=== PATIENT | female | born 2000 | race African-American/Black ===

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

== ENCOUNTER 2019-10-27 08:49 | Emergency (ER) | payer BC ==
[2019-10-27 08:59] VITALS: BP 106/61; PULSE 65; TEMP 97.9; BMI 16.1
--- NOTE | 2019-10-27 09:35 | PDOC ---
History of Present Illness - General Chief Complaint: Ear Problem Stated Complaint: EAR PROBLEM/LEG PAIN Time Seen by Provider: 10/27/19 09:15 History Source: Patient Exam Limitations: No Limitations - History of Present Illness Initial Comments: 10/27/19 09:30 18 year old female with no significant medical or surgical history presents with chronic upper back pain, left knee pain and clogged left ear. Patient reports treated 2 weeks ago for upper back and shoulder pain, states still has patches , has not yet followed up and has no new symptoms. Also reports left ear feeling clogged and having a lot of wax when she cleans the ear. Denies decrease hearing. States pain in left knee when she extends her left leg and tries to flex it. Denies injuries, fall, numbness or tingling. Is this a multiple visit Asthma Patient?: No Timing/Duration: unsure Severity: moderate Modifying Factors: improves with: immobilization Associated Symptoms: reports: denies symptoms Aspirin Received prior to arrival: Yes: no aspirin today Asa Contraindications(Core Measure): Yes: Allergy Beta Alfonso Contraindications(Core Measure): Yes: Not Prescribed Beta Alfonso Given by EMS(Core Measure): No Beta Alfonso Taken at Home(Core Measure): No Beta Alfonso Not Indicated at this Time(Core Measure): No Past History - Travel Traveled outside of the country in the last 30 days: No Close contact w/someone who was outside of country & ill: No - Past Medical History Allergies/Adverse Reactions: Allergies Allergy/AdvReac Type Severity Reaction Status Date / Time No Known Allergies Allergy Verified 10/27/19 08:59 COPD: No Liver Disease: No - Surgical History Gastric Stapling: No - Immunization History Immunization Up to Date: Yes - Psycho Social/Smoking Cessation Hx Smoking History: Current every day smoker Have you smoked in the past 12 months: No Number of Cigarettes Smoked Daily: 0 Information on smoking cessation initiated: No Hx Alcohol Use: No Drug/Substance Use Hx: Yes (Marijuana daily) Substance Use Type: Marijuana Review of Systems - Review of Systems Able to Perform ROS?: Yes Is the patient limited Hungarian proficient: No Constitutional: No: Chills, Fever HEENTM: Yes: Ear Pain Respiratory: No: Cough, Orthopnea, Wheezing Cardiac (ROS): No: Chest Pain, Edema, Chest Tightness ABD/GI: No: Nausea, Poor Appetite, Poor Fluid Intake Musculoskeletal: Yes: Back Pain, Joint Pain. No: Joint Swelling, Muscle Pain, Muscle Weakness, Neck Pain Integumentary: No: Bruising, Erythema, Flushing, Lesions, Lumps, Pruritus, Rash , Sweating Neurological: No: Headache, Numbness, Paresthesia, Seizure, Tingling, Tremors, Weakness Psychiatric: No: Stressors, Sleep Pattern Change Endocrine: No: Increased Hunger, Increased Urine, Unexplained Weight Gain *Physical Exam - Vital Signs Last Vital Signs Temp Pulse Resp BP Pulse Ox 97.9 F 65 16 106/61 99 10/27/19 08:56 10/27/19 08:56 10/27/19 08:56 10/27/19 08:56 10/27/19 08:56 - Physical Exam General Appearance: Yes: Nourished, Appropriately Dressed HEENT: positive: TMs Normal, Pharynx Normal Neck: positive: Supple. negative: Lymphadenopathy (R), Lymphadenopathy (L) Respiratory/Chest: positive: Lungs Clear, Normal Breath Sounds Cardiovascular: positive: Regular Rhythm, Regular Rate Musculoskeletal: negative: CVA Tenderness, CVA Tenderness (R), Vertebral Tenderness Extremity: positive: Normal Capillary Refill, Other (no redness, swelling of left knee, FROM ) Neurologic: positive: Fully Oriented, Alert, Normal Response ED Treatment Course - RADIOLOGY Radiology Studies Ordered: Category Date Time Status KNEE 3 POS-LEFT [RAD] Stat Radiology 10/27/19 09:24 Ordered Medical Decision Making - Medical Decision Making 10/27/19 09:37 8 year old female with no significant medical or surgical history presents with chronic upper back pain, left knee pain and clogged left ear. Patient reports treated 2 weeks ago for upper back and shoulder pain, states still has patches , has not yet followed up and has no new symptoms. Also reports left ear feeling clogged and having a lot of wax when she cleans the ear. Denies decrease hearing. States pain in left knee when she extends her left leg and tries to flex it. Denies injuries, fall, numbness or tingling. ImP: left knee pain cerumen impaction Plan: Left knee xray rx: debrox 10/27/19 10:31 left knee: wet read negative film; negative knee film d/c home f/u with ortho 10/27/19 19:46 Discharge - Discharge Information Problems reviewed: Yes Clinical Impression/Diagnosis: Impacted cerumen Qualifiers: Laterality: left Qualified Code(s): H61.22 - Impacted cerumen, left ear Knee pain, left Qualifiers: Chronicity: unspecified Qualified Code(s): M25.562 - Pain in left knee Condition: Good Disposition: HOME - Admission No - Follow up/Referral - Patient Discharge Instructions Patient Printed Discharge Instructions: Cerumen Impaction, DI for Knee Pain Additional Instructions: Activity as tolerated Call orthopedic for follow up appointment Use ear drops as directed Return to emergency room for decrease hearing - Post Discharge Activity Work/Back to School Note: Back to Work
== END 2019-10-27 10:48 | disposition home or self-care (01) ==
LOC: JERFT 08:49
DX: H61.22 Impacted cerumen, left ear (principal); M25.562 Pain in left knee
CPT/HCPCS: 73562-TC-LT-FY; 99282-25

== ENCOUNTER 2020-06-06 10:00 | Emergency (ER) | payer BC ==
[2020-06-06 10:10] VITALS: BP 119/72; PULSE 98; TEMP 98; BMI 19.3
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
== END 2020-06-06 11:03 | disposition home or self-care (01) ==
LOC: JERFT 10:00
DX: S62.201A Unspecified fracture of first metacarpal bone, right hand, initial encounter for closed fracture (principal)
CPT/HCPCS: 73110-TC-RT-FY; 73130-TC-RT-FY; 99283-25

== ENCOUNTER 2020-06-10 13:09 | Day surgery (SDC) | payer BC ==
[2020-06-10] MEDS ORDERED: LIDOCAINE HCL 2% (20ML MULTI-DOSE VIAL) ONE (14:35)
[2020-06-10] MEDS ORDERED: BUPIVACAINE HCL/PF 0.5% (5MG/ML) 10 ML VIAL ONE (14:35)
[2020-06-10] MEDS ORDERED: GUM MASTIC/STORAX/MSAL/ALCOHOL 1 DRP DROPSBTL MC ONE (14:35)
[2020-06-10] MEDS ORDERED: MIDAZOLAM HCL 2 MG/2 ML SINGLE DOSE VIAL ONE (14:45)
[2020-06-10] MEDS ORDERED: PROPOFOL 20 ML ONE (14:48)
[2020-06-10] MEDS ORDERED: SUCCINYLCHOLINE CHLORIDE 200 MG/10 ML SYRINGE ONE (14:48)
[2020-06-10] MEDS ORDERED: BUPIVACAINE HCL/PF 0.5% (5 MG/ML) 30 ML VIAL IJ ONE (15:44)
[2020-06-10] MEDS ORDERED: ONDANSETRON 4 MG/2 ML VIAL IVPUSH PRN (15:58)
[2020-06-10] MEDS ORDERED: oxyCODONE HCL 5 MG TABLET PO PRN (15:58)
[2020-06-10] MEDS ORDERED: LACTATED RINGERS SOLUTION 1,000 ML IV SCH (16:00)
--- NOTE | 2020-06-10 16:15 | OP ---
DATE OF OPERATION: 06/10/2020 PREOPERATIVE DIAGNOSIS: Right thumb metacarpal fracture. POSTOPERATIVE DIAGNOSIS: Right thumb metacarpal fracture. PROCEDURE: Closed reduction and percutaneous pinning, right thumb metacarpal fracture. SURGEON: Geremias Lundberg MD. ADOBE BALL MIXER: CAITLYN Macdonald. ANESTHESIA: General. COMPLICATIONS: None. ESTIMATED BLOOD LOSS: Minimal. INDICATION FOR PROCEDURE: The patient is a 19-year-old female with the above findings, indicated for operative treatment. Risks, benefits, and alternatives were discussed with the patient at length. Proper informed consent was obtained. DESCRIPTION OF PROCEDURE: After proper identification of the patient and correct operative site, patient was brought to the operating room and placed supine on the operating room table, all bony prominences well padded. General anesthesia was given. Intravenous antibiotics were given. Timeout procedure was performed. Right upper extremity was prepped and draped in the usual sterile fashion. Well padded tourniquet was placed with a sterile prep. No tourniquet was inflated. Closed reduction was performed under live fluoroscopy. Once satisfactory reduction was achieved, crossing K-wires were placed percutaneously. These were both 0.045 K-wires. These were both bent and cut short outside of the skin. Final x-rays were taken to confirm the proper reduction and placement and sizing of hardware. Pins were sterilely dressed. A splint was placed, and the patient was reversed from anesthesia, brought to recovery in stable condition. She tolerated procedure well. GEREMIAS LUNDBERG M.D. [id number]
[2020-06-10] MEDS ORDERED: oxyCODONE HCL 5 MG TABLET ONE (16:53)
[2020-06-10] MEDS ORDERED: oxyCODONE HCL 5 MG TABLET PO ONE (16:56)
[2020-06-10 18:04] VITALS: BP 120/80; PULSE 80; TEMP 97.6
== END 2020-06-10 17:50 | disposition home or self-care (01) ==
LOC: FASU 13:09
PROVIDERS: ATTEND Orthopaedic Surgery Hand Surgery
PROC: 0PSP34Z Reposition Right Metacarpal with Internal Fixation Device, Percutaneous Approach (ICD-10-PCS; principal; 2020-06-10 15:30)
DX: S62.231A Other displaced fracture of base of first metacarpal bone, right hand, initial encounter for closed fracture (principal); X58.XXXA Exposure to other specified factors, initial encounter; Y93.9 Activity, unspecified; Y92.9 Unspecified place or not applicable
CPT/HCPCS: 73130-TC-RT-FY; 84703; 94760

== ENCOUNTER 2020-09-16 21:18 | Emergency (ER) | payer BC, OTHER ==
[2020-09-16 21:46] VITALS: BP 121/70; PULSE 110; TEMP 98.5
[2020-09-16] MEDS ORDERED: ACETAMINOPHEN 500 MG TABLET (FP) PO ONE (22:33)
[2020-09-16] MEDS ORDERED: ACETAMINOPHEN 500 MG TABLET (FP) ONE (22:40)
== END 2020-09-17 01:14 | disposition home or self-care (01) ==
LOC: JER 21:18
DX: G44.309 Post-traumatic headache, unspecified, not intractable (principal)
CPT/HCPCS: 70450-TC; 99284-25

== ENCOUNTER 2021-01-06 12:26 | Emergency (ER) | payer SELFPAY ==
[2021-01-06 12:41] VITALS: BP 121/64; PULSE 73; TEMP 98.6
[2021-01-06] MEDS ORDERED: AMOX TR/POT CLAV 875MG/125MG TABLETS (FP) PO ONE (13:09)
[2021-01-06] MEDS ORDERED: DIPHTH,PERTUSS(ACELL),TET 0.5 ML DISP.SYRIN IM ONE ×2 (13:09→13:11)
[2021-01-06] MEDS ORDERED: AMOX TR/POT CLAV 875MG/125MG TABLETS (FP) ONE (13:11)
== END 2021-01-06 13:38 | disposition home or self-care (01) ==
LOC: JERFT 12:26
PROC: 3E0234Z Introduction of Serum, Toxoid and Vaccine into Muscle, Percutaneous Approach (ICD-10-PCS; principal; 2021-01-06)
DX: S71.152A Open bite, left thigh, initial encounter (principal); W54.0XXA Bitten by dog, initial encounter
CPT/HCPCS: 90715; 99283-25

== ENCOUNTER 2021-08-26 08:33 | Emergency (ER) | payer OTHER ==
[2021-08-26 08:52] VITALS: BP 99/68; PULSE 80; TEMP 98; BMI 19.3
[2021-08-26] MEDS ORDERED: IBUPROFEN 600 MG TABLET (FP) PO ONE ×2 (10:14→10:24)
[2021-08-26 12:21] LABS: THROAT:GRP A STREP NOT DETECTED (NOTDETECTED)
[2021-08-26 13:10] LABS: SARS COV-2 MOLECULAR NEGATIVE (Negative)
== END 2021-08-26 10:31 | disposition home or self-care (01) ==
LOC: JER 08:33
DX: R07.0 Pain in throat (principal)
CPT/HCPCS: 87651; 99283-25; C9803; U0003; U0005

== ENCOUNTER 2022-04-02 09:59 | Emergency (ER) | payer OTHER ==
[2022-04-02 10:12] VITALS: BP 102/66; PULSE 72; TEMP 98; BMI 19.3
[2022-04-02] MEDS ORDERED: KETOROLAC TROMETHAMINE 30 MG/1 ML VIAL IM ONE (11:00)
[2022-04-02] MEDS ORDERED: KETOROLAC TROMETHAMINE 30 MG/1 ML VIAL ONE (11:21)
== END 2022-04-02 11:25 | disposition home or self-care (01) ==
LOC: JER 09:59 → JERFT 09:59
PROC: 3E0233Z Introduction of Anti-inflammatory into Muscle, Percutaneous Approach (ICD-10-PCS; principal; 2022-04-02)
DX: S46.912A Strain of unspecified muscle, fascia and tendon at shoulder and upper arm level, left arm, initial encounter (principal)
CPT/HCPCS: 73030-TC-LT-FY; 99284-25

== ENCOUNTER 2022-06-15 08:45 | Emergency (ER) | payer OTHER ==
[2022-06-15 08:50] VITALS: BP 104/66; PULSE 72; RESP 20; TEMP 98.4; BMI 19.3
[2022-06-15] MEDS ORDERED: DEXAMETHASONE LIQUID 0.5 MG/5 ML PO ONE (10:02)
[2022-06-15] MEDS ORDERED: ACETAMINOPHEN 325 MG TABLET (FP) PO ONE (10:03)
[2022-06-15] MEDS ORDERED: ACETAMINOPHEN 325 MG TABLET (FP) ONE (10:11)
[2022-06-15] MEDS ORDERED: DEXAMETHASONE SOD PHOSPHATE 10 MG/1 ML VIAL ONE (10:11)
== END 2022-06-15 10:55 | disposition home or self-care (01) ==
LOC: JERFT 08:45
DX: J02.9 Acute pharyngitis, unspecified (principal)
CPT/HCPCS: 87651; 99283-25

== ENCOUNTER 2022-07-04 10:47 | Emergency (ER) | payer OTHER ==
[2022-07-04 11:02] VITALS: BP 114/70; PULSE 85; RESP 18; TEMP 98.8; BMI 19.3
[2022-07-04] MEDS ORDERED: ACETAMINOPHEN 500 MG TABLET (FP) PO ONE (11:32)
[2022-07-04] MEDS ORDERED: ACETAMINOPHEN 500 MG TABLET (FP) ONE (11:33)
== END 2022-07-04 11:57 | disposition home or self-care (01) ==
LOC: JER 10:47
DX: J02.9 Acute pharyngitis, unspecified (principal)
CPT/HCPCS: 0241U-QW; 87651; 99283-25

== ENCOUNTER 2022-07-05 08:42 | Emergency (ER) | payer OTHER ==
[2022-07-05 08:52] VITALS: RESP 18; BMI 19.3
[2022-07-05] MEDS ORDERED: CLINDAMYCIN 600MG PREMIX IVPB 600 MG/50 ML BAG IVPB ONE ×2 (09:28→10:17)
[2022-07-05] MEDS ORDERED: ACETAMINOPHEN 1000 MG/100 ML BAG IVPB ONE (09:28)
[2022-07-05] MEDS ORDERED: SODIUM CHLORIDE 1,000 ML IV STA ×2 (09:28→16:42)
[2022-07-05] MEDS ORDERED: ONDANSETRON 4 MG/2 ML VIAL IVPUSH ONE (09:28)
[2022-07-05] MEDS ORDERED: ACETAMINOPHEN INJECTION 100 ML IVPB ONE (10:16)
[2022-07-05] MEDS ORDERED: ONDANSETRON 4 MG/2 ML VIAL ONE (10:17)
[2022-07-05 10:19] LABS: BASO % 0.1 % (0-2.0); EOS % 0.1 % (0-4.5); HEMATOCRIT 38.6 % (32.4-45.2); HEMOGLOBIN 12.9 GM/dL (10.7-15.3); MCH 32.4 pg (25.7-33.7); MCHC 33.4 g/dl (32.0-36.0); MEAN PLT VOLUME 9.1 fl (7.5-11.1); MONO % 14.2 % (3.8-10.2); NEUT % 74.6 % (42.8-82.8); PLATELET COUNT 240 10^3/uL (134-434); RBC 3.98 M/mm3 (3.60-5.2); RDW 16.1 % (11.6-15.6); WHITE BLOOD COUNT 12.6 K/mm3 (4.0-10.0)
[2022-07-05 10:22] LABS: EPI CELLS 36 /uL (0-25.1); HYALINE CASTS 5 /uL (0-3.1); URINE APPEARANCE CLEAR; URINE BACTERIA 86 /uL (0-1359); URINE BILIRUBIN 1+ (NEGATIVE); URINE COLOR DK YELLOW; URINE GLUCOSE (UA) NEGATIVE (NEGATIVE); URINE KETONE 1+ (NEGATIVE); URINE LEUK ESTERASE TRACE (NEGATIVE); URINE NITRITE NEGATIVE (NEGATIVE); URINE PROTEIN 1+ (NEGATIVE); URINE RBC 209 /uL (0-23.9); URINE WBC 28 /uL (0-25.8)
[2022-07-05 10:40] LABS: CALCIUM 9.4 mg/dL (8.5-10.1)
[2022-07-05 10:41] LABS: ALBUMIN 3.8 g/dl (3.4-5.0); BLOOD UREA NITROGEN 11.2 mg/dL (7-18)
[2022-07-05 10:44] LABS: CREATININE 0.8 mg/dL (0.55-1.3)
[2022-07-05 10:46] LABS: TOT PROT 7.8 g/dl (6.4-8.2)
[2022-07-05] MEDS ORDERED: DEXAMETHASONE SOD PHOSPHATE 4 MG/1 ML VIAL IVPUSH ONE (15:14)
[2022-07-05] MEDS ORDERED: DEXAMETHASONE SOD PHOSPHATE 10 MG/1 ML VIAL ONE (15:15)
[2022-07-05] MEDS ORDERED: KETOROLAC TROMETHAMINE 60 MG/2 ML VIAL IVPUSH ONE (15:17)
[2022-07-05] MEDS ORDERED: AMPICILLIN NA/SULBACTAM NA 3 GM in SODIUM CHLORIDE 100 ML IVPB ONE (15:23)
[2022-07-05] MEDS ORDERED: KETOROLAC TROMETHAMINE 30 MG/1 ML VIAL ONE (15:32)
[2022-07-05 17:33] VITALS: BP 109/70; PULSE 77; TEMP 98.7
== END 2022-07-05 17:33 | disposition short-term general hospital (02) ==
LOC: JER 08:42
PROC: 3E033GC Introduction of Other Therapeutic Substance into Peripheral Vein, Percutaneous Approach (ICD-10-PCS; principal; 2022-07-05)
DX: R11.2 Nausea with vomiting, unspecified (principal)
CPT/HCPCS: 0241U-QW; 36415; 70491-TC; 80053; 81003; 85025; 87086; 99285-25; Q9967

== ENCOUNTER 2022-09-02 12:18 | Emergency (ER) | payer OTHER ==
[2022-09-02 12:31] VITALS: BP 122/89; RESP 18; TEMP 99.9; BMI 19.3
[2022-09-02] MEDS ORDERED: KETOROLAC TROMETHAMINE 30 MG/1 ML VIAL IM ONE (12:52)
[2022-09-02] MEDS ORDERED: ONDANSETRON *ODT* 4 MG TABLET SL ONE (12:52)
[2022-09-02] MEDS ORDERED: KETOROLAC TROMETHAMINE 30 MG/1 ML VIAL ONE (13:17)
[2022-09-02] MEDS ORDERED: ONDANSETRON *ODT* 4 MG TABLET ONE (13:17)
[2022-09-02 16:14] VITALS: PULSE 88
== END 2022-09-02 16:14 | disposition home or self-care (01) ==
LOC: JER 12:18
PROC: 3E0233Z Introduction of Anti-inflammatory into Muscle, Percutaneous Approach (ICD-10-PCS; principal; 2022-09-02)
DX: U07.1 COVID-19 (principal)
CPT/HCPCS: 0241U-QW; 99284-25; Q0162

== ENCOUNTER 2022-10-11 07:51 | Observation (INO) | payer OTHER ==
[2022-10-11] MEDS ORDERED: SODIUM CHLORIDE 1,000 ML IV STA (08:22)
[2022-10-11] MEDS ORDERED: ONDANSETRON 4 MG/2 ML VIAL IVPUSH ONE (08:22)
[2022-10-11] MEDS ORDERED: ONDANSETRON 4 MG/2 ML VIAL ONE ×2 (08:38→17:28)
[2022-10-11] MEDS ORDERED: ACETAMINOPHEN INJECTION 100 ML IVPB ONE (08:51)
[2022-10-11] MEDS ORDERED: ACETAMINOPHEN 1000 MG/100 ML BAG IVPB ONE (09:01)
[2022-10-11 09:07] LABS: BASO % 0.3 % (0-2.0); EOS % 0.1 % (0-4.5); HEMATOCRIT 40.2 % (32.4-45.2); LYMPH % 7.7 % (8-40); MCH 32.2 pg (25.7-33.7); MCHC 32.4 g/dl (32.0-36.0); MEAN CELL VOLUME 99.3 fl (80-96); MEAN PLT VOLUME 8.9 fl (7.5-11.1); MONO % 13.4 % (3.8-10.2); NEUT % 78.5 % (42.8-82.8); PLATELET COUNT 236 10^3/uL (134-434); RBC 4.05 M/mm3 (3.60-5.2); RDW 14.1 % (11.6-15.6); WHITE BLOOD COUNT 13.3 K/mm3 (4.0-10.0)
[2022-10-11 09:11] LABS: HCG,QUALITATIVE URINE Negative
[2022-10-11 09:38] LABS: URINE APPEARANCE CLEAR; URINE BILIRUBIN NEGATIVE (NEGATIVE); URINE COLOR YELLOW; URINE GLUCOSE (UA) NEGATIVE (NEGATIVE); URINE KETONE 80 (NEGATIVE); URINE PROTEIN 100 (NEGATIVE)
[2022-10-11 09:39] LABS: URINE LEUK ESTERASE NEGATIVE (NEGATIVE); URINE NITRITE NEGATIVE (NEGATIVE)
[2022-10-11 10:06] LABS: EPI CELLS 55.5 /uL (0-25.1); HYALINE CASTS 5.52 /uL (0-3.1); URINE BACTERIA 164.2 /uL (0-1359); URINE RBC 157.2 /uL (0-23.9)
[2022-10-11 10:13] LABS: ALBUMIN 3.6 g/dl (3.4-5.0); BLOOD UREA NITROGEN 9.1 mg/dL (7-18); CALCIUM 8.1 mg/dL (8.5-10.1)
[2022-10-11 10:14] LABS: CREATININE 0.7 mg/dL (0.55-1.3)
[2022-10-11 10:17] LABS: BILIRUBIN,TOTAL 0.7 mg/dL (0.2-1)
[2022-10-11] MEDS ORDERED: POTASSIUM CHLORIDE TABS 10 MEQ TABLET.ER (FP) PO ONE (12:12)
[2022-10-11] MEDS ORDERED: POTASSIUM CHLORIDE TABS 10 MEQ TABLET.ER (FP) ONE (12:27)
[2022-10-11] MEDS ORDERED: AMOX TR/POT CLAV 875MG/125MG TABLETS (FP) PO ONE (12:33)
[2022-10-11] MEDS ORDERED: KETOROLAC TROMETHAMINE 30 MG/1 ML VIAL IVPUSH ONE (12:33)
[2022-10-11] MEDS ORDERED: AMOX TR/POT CLAV 875MG/125MG TABLETS (FP) ONE (12:34)
[2022-10-11] MEDS ORDERED: KETOROLAC TROMETHAMINE 30 MG/1 ML VIAL ONE (12:34)
[2022-10-11 14:04] LABS: INR 1.33 (0.83-1.09); PROTHROMBIN TIME (PATIENT) 15.3 SEC (9.7-13.0)
[2022-10-11 14:07] LABS: ACTIVATED PTT 30.6 SECONDS (25.2-36.5)
[2022-10-11] MEDS ORDERED: ACETAMINOPHEN 1000 MG/100 ML BAG IVPB PRN (17:17)
[2022-10-11] MEDS: SODIUM CHLORIDE 1,000 ML IV SCH (17:27)
[2022-10-11] MEDS ORDERED: PIPERACILLIN/TAZOB 3.375 GM 3.375 GM/50 ML BAG IVPB ONE ×2 (17:29→17:45)
[2022-10-11] MEDS: ONDANSETRON 4 MG/2 ML VIAL IVPUSH PRN ×3 (18:30→22:56)
[2022-10-11] MEDS: PIPERACILLIN/TAZOB 3.375 GM 3.375 GM in DEXTROSE 5%-WATER - 50 ML IVPB SCH (18:41)
[2022-10-11 18:51] VITALS: BMI 17.7
[2022-10-12] MEDS: PIPERACILLIN/TAZOB 3.375 GM 3.375 GM in DEXTROSE 5%-WATER - 50 ML IVPB SCH ×3 (01:33→18:07)
[2022-10-12 10:47] LABS: BASO % 0.2 % (0-2.0); EOS % 0.5 % (0-4.5); HEMATOCRIT 35.6 % (32.4-45.2); HEMOGLOBIN 11.6 GM/dL (10.7-15.3); LYMPH % 13.2 % (8-40); MCH 32.2 pg (25.7-33.7); MCHC 32.5 g/dl (32.0-36.0); MEAN CELL VOLUME 98.9 fl (80-96); MEAN PLT VOLUME 9.2 fl (7.5-11.1); MONO % 17.6 % (3.8-10.2); NEUT % 68.5 % (42.8-82.8); PLATELET COUNT 231 10^3/uL (134-434); RDW 14.2 % (11.6-15.6); WHITE BLOOD COUNT 13.4 K/mm3 (4.0-10.0)
[2022-10-12 11:11] LABS: CALCIUM 8.9 mg/dL (8.5-10.1)
[2022-10-12 11:12] LABS: BLOOD UREA NITROGEN 11.7 mg/dL (7-18); MAGNESIUM 2.3 mg/dL (1.8-2.4)
[2022-10-12 11:13] LABS: ALBUMIN 3.4 g/dl (3.4-5.0)
[2022-10-12 11:16] LABS: BILIRUBIN,TOTAL 0.6 mg/dL (0.2-1); CREATININE 0.8 mg/dL (0.55-1.3); PHOSPHOROUS 2.8 mg/dL (2.5-4.9)
[2022-10-12 13:43] LABS: ERYTHROCYTE SEDIMENTATION RATE 33 mm/hr (0-20)
[2022-10-12] MEDS: SODIUM CHLORIDE 1,000 ML IV SCH (14:35)
[2022-10-12] MEDS ORDERED: BISACODYL 5 MG TABLET.DR (FP) PO ONE (16:00)
[2022-10-12] MEDS ORDERED: PEG 3350/NA SULF BICARB CL/KCL 4000 ML SOLN.RECON PO ONE (17:00)
[2022-10-13] MEDS: PIPERACILLIN/TAZOB 3.375 GM 3.375 GM in DEXTROSE 5%-WATER - 50 ML IVPB SCH ×3 (02:04→17:13)
[2022-10-13 10:03] LABS: BASO % 0.1 % (0-2.0); EOS % 1.6 % (0-4.5); HEMOGLOBIN 12.8 GM/dL (10.7-15.3); LYMPH % 24.6 % (8-40); MCH 32.2 pg (25.7-33.7); MCHC 32.7 g/dl (32.0-36.0); MEAN CELL VOLUME 98.4 fl (80-96); MEAN PLT VOLUME 9.1 fl (7.5-11.1); MONO % 17.7 % (3.8-10.2); PLATELET COUNT 269 10^3/uL (134-434); RBC 3.96 M/mm3 (3.60-5.2); RDW 14.3 % (11.6-15.6); WHITE BLOOD COUNT 8.1 K/mm3 (4.0-10.0)
[2022-10-13 10:11] LABS: INR 1.1 (0.83-1.09); PROTHROMBIN TIME (PATIENT) 12.7 SEC (9.7-13.0)
[2022-10-13 10:28] LABS: BLOOD UREA NITROGEN 5.1 mg/dL (7-18); CALCIUM 9.2 mg/dL (8.5-10.1)
[2022-10-13 10:32] LABS: CREATININE 0.7 mg/dL (0.55-1.3)
[2022-10-13 10:56] LABS: ERYTHROCYTE SEDIMENTATION RATE 54 mm/hr (0-20)
[2022-10-13 11:16] VITALS: RESP 20
[2022-10-13] MEDS: VANCOMYCIN 250 MG/5 ML ORAL SOLUTION PO SCH ×2 (12:24→17:13)
[2022-10-14] MEDS: VANCOMYCIN 250 MG/5 ML ORAL SOLUTION PO SCH ×3 (01:21→11:53)
[2022-10-14] MEDS: PIPERACILLIN/TAZOB 3.375 GM 3.375 GM in DEXTROSE 5%-WATER - 50 ML IVPB SCH ×2 (02:17→10:33)
[2022-10-14 09:20] LABS: BASO % 0.4 % (0-2.0); EOS % 3.1 % (0-4.5); HEMOGLOBIN 12.1 GM/dL (10.7-15.3); LYMPH % 41.5 % (8-40); MCH 32.2 pg (25.7-33.7); MCHC 32.7 g/dl (32.0-36.0); MEAN CELL VOLUME 98.5 fl (80-96); MEAN PLT VOLUME 8.8 fl (7.5-11.1); MONO % 12.9 % (3.8-10.2); NEUT % 42.1 % (42.8-82.8); PLATELET COUNT 301 10^3/uL (134-434); RBC 3.75 M/mm3 (3.60-5.2); RDW 14.3 % (11.6-15.6); WHITE BLOOD COUNT 5.7 K/mm3 (4.0-10.0)
[2022-10-14 09:50] LABS: CREATININE 0.7 mg/dL (0.55-1.3)
[2022-10-14 09:51] LABS: ALBUMIN 3.1 g/dl (3.4-5.0); BLOOD UREA NITROGEN 6.1 mg/dL (7-18)
[2022-10-14 09:52] LABS: CALCIUM 8.9 mg/dL (8.5-10.1); MAGNESIUM 2.3 mg/dL (1.8-2.4)
[2022-10-14 09:55] LABS: BILIRUBIN,TOTAL 0.4 mg/dL (0.2-1)
[2022-10-14 09:58] LABS: TOT PROT 6.7 g/dl (6.4-8.2)
[2022-10-14 10:35] LABS: ERYTHROCYTE SEDIMENTATION RATE 29 mm/hr (0-20)
[2022-10-14 14:40] VITALS: BP 116/67; PULSE 79; TEMP 99.1
== END 2022-10-14 16:15 | disposition home or self-care (01) ==
LOC: JER 07:51 → JERBED 12:59 → J8W 18:24
PROVIDERS: ADMIT Internal Medicine; ATTEND Nurse Practitioner Acute Care
PROC: 3E033NZ Introduction of Analgesics, Hypnotics, Sedatives into Peripheral Vein, Percutaneous Approach (ICD-10-PCS; principal; 2022-10-11)
PROC: 3E0333Z Introduction of Anti-inflammatory into Peripheral Vein, Percutaneous Approach (ICD-10-PCS; 2022-10-11)
PROC: 3E033GC Introduction of Other Therapeutic Substance into Peripheral Vein, Percutaneous Approach (ICD-10-PCS; 2022-10-11)
PROC: 3E03329 Introduction of Other Anti-infective into Peripheral Vein, Percutaneous Approach (ICD-10-PCS; 2022-10-11)
PROC: 3E0337Z Introduction of Electrolytic and Water Balance Substance into Peripheral Vein, Percutaneous Approach (ICD-10-PCS; 2022-10-11)
PROC: 0DBP8ZX Excision of Rectum, Via Natural or Artificial Opening Endoscopic, Diagnostic (ICD-10-PCS; 2022-10-11)
DX: K52.9 Noninfective gastroenteritis and colitis, unspecified (principal); Z29.8 Encounter for other specified prophylactic measures; R63.4 Abnormal weight loss; R50.9 Fever, unspecified
CPT/HCPCS: 36415; 71046-TC-FY; 72192-TC; 74177-TC; 80048; 80053; 81003; 83690; 83735; 83993; 84100; 84703; 85025; 85610; 85651; 85730; 86140; 86850; 86900; 86901; 87040; 87045; 87046; 87086; 87324; 87449; 87651; 87798; 88305-TC; 93005; 93010; 96361; 96365; 96375; 99285-25; C9803-CS; G0378; Q9967; U0003; U0005

== ENCOUNTER 2022-11-25 20:39 | Emergency (ER) | payer OTHER ==
[2022-11-25 20:46] VITALS: BP 106/49; PULSE 87; RESP 18; TEMP 98; BMI 19.3
[2022-11-25] MEDS ORDERED: KETOROLAC TROMETHAMINE 30 MG/1 ML VIAL IM ONE (22:39)
[2022-11-25] MEDS ORDERED: AMOXICILLIN 500 MG CAPSULE (FP) PO ONE (22:39)
[2022-11-25] MEDS ORDERED: AMOXICILLIN 250 MG CAPSULE ONE (22:47)
[2022-11-25] MEDS ORDERED: KETOROLAC TROMETHAMINE 30 MG/1 ML VIAL ONE (22:47)
== END 2022-11-25 23:08 | disposition home or self-care (01) ==
LOC: JER 20:39 → JERFT 20:39
PROC: 3E023GC Introduction of Other Therapeutic Substance into Muscle, Percutaneous Approach (ICD-10-PCS; principal; 2022-11-25)
DX: K08.89 Other specified disorders of teeth and supporting structures (principal)
CPT/HCPCS: 99284-25

== ENCOUNTER 2022-11-30 05:21 | Emergency (ER) | payer OTHER ==
[2022-11-30 05:32] VITALS: BP 105/61; PULSE 77; RESP 24; TEMP 97.7; BMI 19.3
[2022-11-30] MEDS ORDERED: LACTATED RINGERS SOLUTION 1000 ML INFUS.BAG IV ONE ×2 (05:37→07:26)
[2022-11-30] MEDS ORDERED: ONDANSETRON 4 MG/2 ML VIAL IVPUSH ONE (05:38)
[2022-11-30] MEDS ORDERED: ONDANSETRON 4 MG/2 ML VIAL ONE (05:40)
[2022-11-30] MEDS ORDERED: ACETAMINOPHEN INJECTION 100 ML IVPB ONE (05:59)
[2022-11-30] MEDS ORDERED: ACETAMINOPHEN 1000 MG/100 ML BAG IVPB ONE (06:01)
[2022-11-30 06:26] LABS: BASO % 0.2 % (0-2.0); EOS % 0.3 % (0-4.5); HEMATOCRIT 38.9 % (32.4-45.2); HEMOGLOBIN 13.2 GM/dL (10.7-15.3); LYMPH % 5.7 % (8-40); MCHC 33.9 g/dl (32.0-36.0); MEAN CELL VOLUME 100.3 fl (80-96); MEAN PLT VOLUME 9.6 fl (7.5-11.1); MONO % 7.8 % (3.8-10.2); PLATELET COUNT 226 10^3/uL (134-434); RBC 3.88 M/mm3 (3.60-5.2); RDW 14.8 % (11.6-15.6); WHITE BLOOD COUNT 7.5 K/mm3 (4.0-10.0)
[2022-11-30 06:45] LABS: CHLORIDE 108 mmol/L (98-107); SODIUM 138 mmol/L (136-145)
[2022-11-30 06:48] LABS: ALBUMIN 4.4 g/dl (3.4-5.0); ANION GAP 11 MMOL/L (8-16); BLOOD UREA NITROGEN 17.9 mg/dL (7-18); CALCIUM 9.8 mg/dL (8.5-10.1); CO2 19 mmol/L (21-32); GLUCOSE,RANDOM 134 mg/dL (74-106); LIPASE 43 U/L (73-393)
[2022-11-30 06:52] LABS: BILIRUBIN,TOTAL 1.9 mg/dL (0.2-1); CREATININE 0.8 mg/dL (0.55-1.3); SGOT/AST 27 U/L (15-37); SGPT/ALT 26 U/L (13-61)
[2022-11-30 06:53] LABS: TOT PROT 8.3 g/dl (6.4-8.2)
[2022-11-30 06:54] LABS: ALK PHOS 61 U/L (45-117)
== END 2022-11-30 14:43 | disposition home or self-care (01) ==
LOC: JER 05:21
PROC: 3E0333Z Introduction of Anti-inflammatory into Peripheral Vein, Percutaneous Approach (ICD-10-PCS; principal; 2022-11-30)
PROC: 3E033GC Introduction of Other Therapeutic Substance into Peripheral Vein, Percutaneous Approach (ICD-10-PCS; 2022-11-30)
DX: N83.201 Unspecified ovarian cyst, right side (principal); R10.31 Right lower quadrant pain; K82.4 Cholesterolosis of gallbladder
CPT/HCPCS: 36415; 74177-TC; 76705-TC; 76856-TC; 80053; 83690; 84702; 85025; 99285-25

== ENCOUNTER 2023-01-18 08:50 | Emergency (ER) | payer OTHER ==
[2023-01-18 09:04] VITALS: BMI 19.3
[2023-01-18] MEDS ORDERED: ONDANSETRON 4 MG/2 ML VIAL IVPUSH ONE (09:08)
[2023-01-18] MEDS ORDERED: SODIUM CHLORIDE 1,000 ML IV STA (09:08)
[2023-01-18] MEDS ORDERED: ACETAMINOPHEN 1000 MG/100 ML BAG IVPB ONE (09:09)
[2023-01-18] MEDS ORDERED: AMOX TR/POT CLAV 875MG/125MG TABLETS (FP) PO ONE (09:16)
[2023-01-18] MEDS ORDERED: ACETAMINOPHEN INJECTION 100 ML IVPB ONE (09:20)
[2023-01-18] MEDS ORDERED: ONDANSETRON 4 MG/2 ML VIAL ONE (09:20)
[2023-01-18] MEDS ORDERED: AMOX TR/POT CLAV 875MG/125MG TABLETS (FP) ONE (09:22)
[2023-01-18 10:08] LABS: BASO % 0.2 % (0-2.0); HEMOGLOBIN 13.6 GM/dL (10.7-15.3); MCH 34.3 pg (25.7-33.7)
[2023-01-18 10:12] LABS: EPI CELLS >36 /uL (0-25.1); HCG,QUALITATIVE URINE Negative; HYALINE CASTS 7 /uL (0-3.1); URINE APPEARANCE CLOUDY; URINE BACTERIA 1648 /uL (0-1359); URINE BILIRUBIN 1+ (NEGATIVE); URINE COLOR DK YELLOW; URINE GLUCOSE (UA) NEGATIVE (NEGATIVE); URINE KETONE TRACE (NEGATIVE); URINE LEUK ESTERASE 1+ (NEGATIVE); URINE NITRITE NEGATIVE (NEGATIVE); URINE PROTEIN 2+ (NEGATIVE); URINE WBC 85 /uL (0-25.8)
[2023-01-18 10:16] LABS: EOS % 0.6 % (0-4.5); HEMATOCRIT 38.6 % (32.4-45.2); LYMPH % 9.1 % (8-40); MCHC 35.3 g/dl (32.0-36.0); MEAN PLT VOLUME 9.3 fl (7.5-11.1); MONO % 14.6 % (3.8-10.2); NEUT % 75.5 % (42.8-82.8); PLATELET COUNT 189 10^3/uL (134-434); RBC 3.98 M/mm3 (3.60-5.2); RDW 14.4 % (11.6-15.6); WHITE BLOOD COUNT 9.8 K/mm3 (4.0-10.0)
[2023-01-18 10:19] LABS: BLOOD UREA NITROGEN 12.6 mg/dL (7-18); CALCIUM 9.5 mg/dL (8.5-10.1)
[2023-01-18 10:23] LABS: CREATININE 0.9 mg/dL (0.55-1.3)
[2023-01-18 10:37] LABS: URINE RBC 304.8 /uL (0-23.9)
[2023-01-18 10:45] LABS: THROAT:GRP A STREP NOT DETECTED (NOTDETECTED)
[2023-01-18 11:02] VITALS: RESP 18
[2023-01-18 11:26] VITALS: BP 108/60; PULSE 61; TEMP 98.6
== END 2023-01-18 11:26 | disposition home or self-care (01) ==
LOC: JER 08:50
PROC: 3E033NZ Introduction of Analgesics, Hypnotics, Sedatives into Peripheral Vein, Percutaneous Approach (ICD-10-PCS; principal; 2023-01-18)
PROC: 3E033GC Introduction of Other Therapeutic Substance into Peripheral Vein, Percutaneous Approach (ICD-10-PCS; 2023-01-18)
PROC: 3E0337Z Introduction of Electrolytic and Water Balance Substance into Peripheral Vein, Percutaneous Approach (ICD-10-PCS; 2023-01-18)
DX: J03.90 Acute tonsillitis, unspecified (principal); R11.2 Nausea with vomiting, unspecified; M54.50 Low back pain, unspecified; J02.9 Acute pharyngitis, unspecified; Z20.822 Contact with and (suspected) exposure to COVID-19
CPT/HCPCS: 0241U-QW; 36415; 80053; 81003; 84703; 85025; 87086; 87651; 99284-25

== ENCOUNTER 2023-01-22 13:54 | Emergency (ER) | payer OTHER ==
[2023-01-22 14:14] VITALS: BP 108/65; PULSE 93; RESP 18; TEMP 98.4; BMI 19.3
== END 2023-01-22 16:00 | disposition home or self-care (01) ==
LOC: JERFT 13:54
DX: M54.6 Pain in thoracic spine (principal); M54.2 Cervicalgia; V49.40XA Driver injured in collision with unspecified motor vehicles in traffic accident, initial encounter
CPT/HCPCS: 99282-25

== ENCOUNTER 2023-04-09 07:10 | Emergency (ER) | payer OTHER ==
[2023-04-09 07:36] VITALS: BP 110/68; PULSE 74; RESP 18; TEMP 98.2; BMI 18.6
[2023-04-09] MEDS ORDERED: MAG HYDROX/AL HYDROX/SIMETH -MYLANTA- ORAL SUSPENSION PO ONE (07:48)
[2023-04-09] MEDS ORDERED: ACETAMINOPHEN 500 MG TABLET (FP) PO ONE (07:48)
[2023-04-09] MEDS ORDERED: FAMOTIDINE 10 MG TABLET PO ONE (07:48)
[2023-04-09] MEDS ORDERED: FAMOTIDINE 20 MG TABLET ONE (07:53)
[2023-04-09] MEDS ORDERED: ACETAMINOPHEN 325 MG TABLET (FP) ONE (07:54)
[2023-04-09] MEDS ORDERED: MAG HYDROX/AL HYDROX/SIMETH 30 ML UNIT-DOSE CUP ONE (07:54)
[2023-04-09 08:17] LABS: BASO % 0.4 % (0-2.0); EOS % 1.5 % (0-4.5); HEMATOCRIT 36.5 % (32.4-45.2); HEMOGLOBIN 12.4 GM/dL (10.7-15.3); LYMPH % 21.7 % (8-40); MCH 33.2 pg (25.7-33.7); MEAN CELL VOLUME 97.5 fl (80-96); MEAN PLT VOLUME 8.7 fl (7.5-11.1); MONO % 13.4 % (3.8-10.2); PLATELET COUNT 214 10^3/uL (134-434); RBC 3.75 M/mm3 (3.60-5.2); RDW 15.5 % (11.6-15.6); WHITE BLOOD COUNT 8.8 K/mm3 (4.0-10.0)
[2023-04-09 08:43] LABS: POTASSIUM 3.8 mmol/L (3.5-5.1)
[2023-04-09 08:45] LABS: BLOOD UREA NITROGEN 17.7 mg/dL (7-18); CALCIUM 9.5 mg/dL (8.5-10.1); MAGNESIUM 2.3 mg/dL (1.8-2.4)
[2023-04-09 08:48] LABS: CREATININE 0.9 mg/dL (0.55-1.3)
[2023-04-09 08:50] LABS: BILIRUBIN,TOTAL 0.9 mg/dL (0.2-1); TOT PROT 7.4 g/dl (6.4-8.2)
== END 2023-04-09 09:25 | disposition home or self-care (01) ==
LOC: JER 07:10
DX: R06.9 Unspecified abnormalities of breathing (principal); R07.89 Other chest pain; R07.81 Pleurodynia; R11.10 Vomiting, unspecified
CPT/HCPCS: 36415; 71045-TC-FY; 80053; 83690; 83735; 84703; 85025; 93005; 93010; 99285-25

== ENCOUNTER 2023-07-21 08:45 | Emergency (ER) | payer OTHER ==
[2023-07-21 08:55] VITALS: BP 105/67; PULSE 85; RESP 18; TEMP 97.6; BMI 22.4
[2023-07-21] MEDS ORDERED: ACETAMINOPHEN 500 MG TABLET (FP) PO ONE (09:04)
[2023-07-21] MEDS ORDERED: ACETAMINOPHEN 500 MG TABLET (FP) ONE (09:05)
== END 2023-07-21 11:40 | disposition home or self-care (01) ==
LOC: JERFT 08:45 → JER 08:45 → JERFT 11:40
DX: S09.93XA Unspecified injury of face, initial encounter (principal); R51.9 Headache, unspecified; R42 Dizziness and giddiness; G44.309 Post-traumatic headache, unspecified, not intractable; W50.1XXA Accidental kick by another person, initial encounter
CPT/HCPCS: 70450-TC; 70486-TC; 99284-25

== ENCOUNTER 2023-08-08 09:52 | Emergency (ER) | payer OTHER ==
[2023-08-08 10:06] VITALS: BP 115/78; PULSE 96; RESP 16; TEMP 98.4; BMI 19.3
== END 2023-08-08 11:53 | disposition home or self-care (01) ==
LOC: JERFT 09:52
DX: J06.9 Acute upper respiratory infection, unspecified (principal); R09.81 Nasal congestion; R07.0 Pain in throat; R05.9 Cough, unspecified; R11.10 Vomiting, unspecified; Z20.822 Contact with and (suspected) exposure to COVID-19
CPT/HCPCS: 0241U-QW; 99283-25

== ENCOUNTER 2023-12-23 06:44 | Emergency (ER) | payer OTHER ==
[2023-12-23 06:55] VITALS: RESP 20; BMI 19.3
[2023-12-23] MEDS ORDERED: ACETAMINOPHEN 325 MG TABLET (FP) ONE (07:36)
[2023-12-23] MEDS: ACETAMINOPHEN 500 MG TABLET (FP) PO ONE (07:55)
[2023-12-23] MEDS ORDERED: FLUCONAZOLE 150 MG TABLET PO ONE (08:45)
[2023-12-23] MEDS: FLUCONAZOLE 150 MG TABLET PO ONE (08:50)
[2023-12-23] MEDS ORDERED: ONDANSETRON *ODT* 4 MG TABLET ONE (11:53)
[2023-12-23] MEDS: ONDANSETRON *ODT* 4 MG TABLET SL ONE (12:00)
[2023-12-23] MEDS ORDERED: KETOROLAC TROMETHAMINE 15 MG/ML VIAL ONE (12:35)
[2023-12-23] MEDS: SODIUM CHLORIDE 0.9% 500 ML INFUS.BAG IV ONE (12:50)
[2023-12-23] MEDS: KETOROLAC TROMETHAMINE 15 MG/ML VIAL IVPUSH ONE (12:50)
[2023-12-23 13:12] LABS: BASO % 0.2 % (0-2.0); HEMATOCRIT 39.9 % (32.4-45.2); HEMOGLOBIN 12.9 GM/dL (10.7-15.3); MCH 32.3 pg (25.7-33.7); MCHC 32.3 g/dl (32.0-36.0); MEAN CELL VOLUME 100.2 fl (80-96); MEAN PLT VOLUME 9.2 fl (7.5-11.1); MONO % 10.8 % (3.8-10.2); PLATELET COUNT 252 10^3/uL (134-434); RBC 3.98 M/mm3 (3.60-5.2); RDW 14.4 % (11.6-15.6); WHITE BLOOD COUNT 12.7 K/mm3 (4.0-10.0)
[2023-12-23 13:19] LABS: CHLORIDE 110 mmol/L (98-107); POTASSIUM 3.3 mmol/L (3.5-5.1); SODIUM 142 mmol/L (136-145)
[2023-12-23 13:21] LABS: ALBUMIN 4.7 g/dl (3.4-5.0); ANION GAP 17 mmol/L (4-13); BLOOD UREA NITROGEN 15.7 mg/dL (7-18); CALCIUM 9.7 mg/dL (8.5-10.1); CO2 16 mmol/L (21-32)
[2023-12-23 13:24] LABS: CREATININE 0.8 mg/dL (0.55-1.3); SGOT/AST 68 U/L (15-37); SGPT/ALT 58 U/L (13-61)
[2023-12-23 13:26] LABS: BILIRUBIN,TOTAL 1.2 mg/dL (0.2-1); TOT PROT 8.4 g/dl (6.4-8.2)
[2023-12-23 13:27] LABS: ALK PHOS 60 U/L (45-117)
[2023-12-23 13:29] LABS: GLUCOSE,RANDOM 48 mg/dL (74-106)
[2023-12-23] MEDS ORDERED: DEXTROSE 50%-WATER 25 GM/50 ML DISP.SYRIN ONE (13:31)
[2023-12-23] MEDS ORDERED: THIAMINE HCL 200 MG/2 ML VIAL ONE (13:32)
[2023-12-23] MEDS: DEXTROSE 50%-WATER 25 GM/50 ML DISP.SYRIN IVPUSH ONE (13:35)
[2023-12-23] MEDS ORDERED: POTASSIUM CHLORIDE ORAL LIQUID 20 MEQ/15 ML ONE (13:40)
[2023-12-23] MEDS: POTASSIUM CHLORIDE ORAL LIQUID 20 MEQ/15 ML PO ONE (13:53)
[2023-12-23] MEDS: THIAMINE HCL 200 MG/2 ML VIAL IVPB ONE (13:53)
[2023-12-23] MEDS: DEXTROSE 5%-NORMAL SALINE 1,000 ML IV ONE (14:19)
[2023-12-23 17:07] VITALS: BP 107/80; PULSE 85; TEMP 97.3
== END 2023-12-23 17:30 | disposition home or self-care (01) ==
LOC: JER 06:44
PROC: 3E0337Z Introduction of Electrolytic and Water Balance Substance into Peripheral Vein, Percutaneous Approach (ICD-10-PCS; principal; 2023-12-23)
PROC: 3E033GC Introduction of Other Therapeutic Substance into Peripheral Vein, Percutaneous Approach (ICD-10-PCS; 2023-12-23)
PROC: 3E033GC Introduction of Other Therapeutic Substance into Peripheral Vein, Percutaneous Approach (ICD-10-PCS; 2023-12-23)
PROC: 3E0337Z Introduction of Electrolytic and Water Balance Substance into Peripheral Vein, Percutaneous Approach (ICD-10-PCS; 2023-12-23)
DX: S00.81XA Abrasion of other part of head, initial encounter (principal); M79.641 Pain in right hand; H02.844 Edema of left upper eyelid; Y04.8XXA Assault by other bodily force, initial encounter
CPT/HCPCS: 36415; 70450-TC; 70486-TC; 72125-TC; 73090-TC-RT-FY; 73130-TC-RT-FY; 80053; 82962; 83690; 84703; 85025; 87491; 87591; 87661; 99284-25; Q0162

== ENCOUNTER 2024-03-08 09:44 | Emergency (ER) | payer OTHER ==
[2024-03-08 09:53] VITALS: BMI 19.3
[2024-03-08] MEDS ORDERED: ONDANSETRON 4 MG/2 ML VIAL ONE (10:16)
[2024-03-08] MEDS ORDERED: ACETAMINOPHEN INJECTION 100 ML IVPB ONE (10:16)
[2024-03-08 10:34] LABS: BASO % 0.7 % (0-2.0); EOS % 2.7 % (0-4.5); HEMATOCRIT 38.9 % (32.4-45.2); HEMOGLOBIN 13.2 GM/dL (10.7-15.3); LYMPH % 41.1 % (8-40); MCH 34.3 pg (25.7-33.7); MCHC 33.8 g/dl (32.0-36.0); MEAN CELL VOLUME 101.5 fl (80-96); MEAN PLT VOLUME 8.6 fl (7.5-11.1); MONO % 11.9 % (3.8-10.2); NEUT % 43.6 % (42.8-82.8); PLATELET COUNT 268 10^3/uL (134-434); RBC 3.83 M/mm3 (3.60-5.2); RDW 15.9 % (11.6-15.6); WHITE BLOOD COUNT 4.2 K/mm3 (4.0-10.0)
[2024-03-08] MEDS: ACETAMINOPHEN 1000 MG/100 ML BAG IVPB ONE (10:38)
[2024-03-08] MEDS: ONDANSETRON 4 MG/2 ML VIAL IVPUSH ONE (10:38)
[2024-03-08] MEDS: SODIUM CHLORIDE 0.9% 500 ML INFUS.BAG IV ONE (10:38)
[2024-03-08 10:54] LABS: CALCIUM 9.6 mg/dL (8.5-10.1)
[2024-03-08 10:55] LABS: ALBUMIN 4.5 g/dl (3.4-5.0); BLOOD UREA NITROGEN 12.4 mg/dL (7-18); MAGNESIUM 2.3 mg/dL (1.8-2.4)
[2024-03-08 10:58] LABS: CREATININE 0.9 mg/dL (0.55-1.3)
[2024-03-08 11:00] LABS: TOT PROT 8.4 g/dl (6.4-8.2)
[2024-03-08] MEDS ORDERED: KETOROLAC TROMETHAMINE 15 MG/ML VIAL ONE (11:09)
[2024-03-08] MEDS: KETOROLAC TROMETHAMINE 15 MG/ML VIAL IVPUSH ONE (11:14)
[2024-03-08 12:48] VITALS: BP 99/55; PULSE 70; RESP 20; TEMP 98.2
== END 2024-03-08 12:51 | disposition home or self-care (01) ==
LOC: EDSEX 09:44 → JER 09:44
PROC: 3E033NZ Introduction of Analgesics, Hypnotics, Sedatives into Peripheral Vein, Percutaneous Approach (ICD-10-PCS; principal; 2024-03-08)
PROC: 3E0333Z Introduction of Anti-inflammatory into Peripheral Vein, Percutaneous Approach (ICD-10-PCS; 2024-03-08)
PROC: 3E033GC Introduction of Other Therapeutic Substance into Peripheral Vein, Percutaneous Approach (ICD-10-PCS; 2024-03-08)
DX: R11.10 Vomiting, unspecified (principal)
CPT/HCPCS: 36415; 80053; 83735; 84703; 85025; 99284-25; J0131

== ENCOUNTER 2025-03-18 10:27 | Emergency (ER) | payer OTHER ==
[2025-03-18 11:32] LABS: HEMOGLOBIN 12.9 g/dL (11.2-15.7); MCHC 33.9 g/dl (32.2-35.5); MEAN CELL VOLUME 99.7 fl (79.4-94.8); MEAN PLT VOLUME 10.4 fl (9.4-12.3); PLATELET COUNT 213 x10^3/uL (182-369); RDW 12.3 % (12.1-16.5)
[2025-03-18 11:34] LABS: URINE APPEARANCE CLEAR; URINE BILIRUBIN NEGATIVE (NEGATIVE); URINE COLOR YELLOW; URINE GLUCOSE (UA) NEGATIVE (NEGATIVE); URINE KETONE NEGATIVE (NEGATIVE); URINE LEUK ESTERASE NEGATIVE (NEGATIVE); URINE NITRITE NEGATIVE (NEGATIVE); URINE PROTEIN NEGATIVE (NEGATIVE); URINE UROBILINOGEN 0.2 mg/dL (0.2-1.0)
[2025-03-18 11:36] VITALS: RESP 18; TEMP 97.3; BMI 19.3
[2025-03-18 11:37] LABS: HCG,QUALITATIVE URINE Negative
[2025-03-18 11:39] LABS: INR 1.02 (0.83-1.09); PROTHROMBIN TIME (PATIENT) 11.1 SEC (9.7-13.0)
[2025-03-18 11:42] LABS: ACTIVATED PTT 29.9 SECONDS (25.2-36.5)
[2025-03-18 11:52] LABS: POTASSIUM 4.2 mmol/L (3.5-5.1)
[2025-03-18 11:55] LABS: CALCIUM 10.5 mg/dL (8.5-10.1)
[2025-03-18 11:56] LABS: BLOOD UREA NITROGEN 10.6 mg/dL (7-18); MAGNESIUM 2.4 mg/dL (1.8-2.4)
[2025-03-18 11:58] LABS: CREATININE 0.9 mg/dL (0.55-1.3)
[2025-03-18 12:00] LABS: BILIRUBIN,TOTAL 0.7 mg/dL (0.2-1); TOT PROT 7.1 g/dl (6.4-8.2)
[2025-03-18 12:59] VITALS: PULSE 74
[2025-03-18 13:03] VITALS: BP 103/64
== END 2025-03-18 13:05 | disposition home or self-care (01) ==
LOC: JER 10:27
DX: R07.89 Other chest pain (principal); R06.02 Shortness of breath; R10.13 Epigastric pain
CPT/HCPCS: 36415; 71046-TC-FY; 80053; 81003; 83735; 84484; 84703; 85027; 85610; 85730; 93005; 93010; 99285-25